=== PATIENT | female | born 1975 | race Caucasian/White ===

== ENCOUNTER → 2016-09-12 | Outpatient (CLI) | payer BC, OTHER ==
[2016-09-12 09:40] LABS: Basophils # (A) 0.1 k/uL (0-0.2); Basophils % (A) 1 %; CH 28.8; CHCM 34.1; Eosinophils # (A) 0.1 k/uL (0-0.7); Eosinophils % (A) 2 %; HCT 44.1 % (34.0-46.0); HDW 2.72; HGB 14.6 gm/dL (11.4-16.0); Luc # (Auto) 0.14; Luc % (Auto) 2; Lymphocytes # (A) 2.6 k/uL (1.0-4.8); Lymphocytes % (A) 29 %; MCH 28.1 pg (25.0-35.0); MCHC 33.1 g/dL (31.0-37.0); MCV 84.9 fL (80.0-100.0); Mean Platelet Volume 7.1; Monocytes # (A) 0.4 k/uL (0-1.0); Monocytes % (A) 5 %; Neutrophils # (A) 5.4 k/uL (1.3-7.7); Neutrophils % (A) 62 %; RDW 13.2 % (11.5-15.5); WBC 8.8 k/uL (3.8-10.6); WBC (Perox) 8.47
[2016-09-12 10:10] LABS: Anion Gap 9 mmol/L; Blood Urea Nitrogen 10 mg/dL (7-17); Calcium 9.8 mg/dL (8.4-10.2); Carbon Dioxide 25 mmol/L (22-30); Chloride 104 mmol/L (98-107); Glucose 108 mg/dL (74-99); Non-African American GFR(MDRD) >60 (>60 ml/min/1.73 sqM); Potassium 4.4 mmol/L (3.5-5.1); Sodium 138 mmol/L (137-145)
== END ==
LOC: LABPAT 08:43
PROVIDERS: ATTEND Obstetrics & Gynecology
DX: Z01.818 Encounter for other preprocedural examination (principal)
CPT/HCPCS: 80048; 85025; 86850; 86900; 86901

== ENCOUNTER 2016-09-20 06:05 | Observation (INO) | payer BC, OTHER ==
[2016-09-18 09:21] VITALS: BMI 34.6
[~2016-09-20 06:05] MED LIST: DEXAMETHASONE SOD PHOSPHATE 10 MG/ML 1 ML VIAL IV ONE; MIDAZOLAM 2 MG/2 ML VIAL IV PRN; SCOPOLAMINE 1.5MG/72HR PATCH TRANSDERM ONE; ceFAZolin 2 GM in SODIUM CHLORIDE 0.9% 100 ML IVPB ONE
[2016-09-20 06:22] VITALS: RESP 16
[2016-09-20] MEDS: LIDOCAINE 1% 20 ML VIAL (10MG/ML) FOR IV START INTRADERMA PRN ×2 (06:42→06:48)
[2016-09-20] MEDS: LACTATED RINGERS 1,000 ML IV SCH (06:47)
[2016-09-20] MEDS: ONDANSETRON 4 MG/2 ML VIAL IVP ONE ×2 (06:48→10:02)
--- NOTE | 2016-09-20 07:06 | P.HPOB ---
History of Present Illness H&P Date: 09/20/16 Chief Complaint: Pelvic organ prolapse 41 year old presents for TLH using da kiki with posterior repair and possible anterior repair. Review of Systems All systems: negative Constitutional: Denies chills, Denies fever Eyes: denies blurred vision, denies pain Ears, nose, mouth and throat: Denies headache, Denies sore throat Cardiovascular: Denies chest pain, Denies shortness of breath Respiratory: Denies cough Gastrointestinal: Denies abdominal pain, Denies diarrhea, Denies nausea, Denies vomiting Genitourinary: Denies dysuria, Denies hematuria Musculoskeletal: Denies myalgias Integumentary: Denies pruritus, Denies rash Neurological: Denies numbness, Denies weakness Psychiatric: Denies anxiety, Denies depression Endocrine: Denies fatigue, Denies weight change Past Medical History Past Medical History: Cancer, Skin Disorder Additional Past Medical History / Comment(s): migraines, hiatal hernia, hx skin cancer, vaginal prolapse, essure implants History of Any Multi-Drug Resistant Organisms: None Reported Past Surgical History: Cholecystectomy, Tubal Ligation Additional Past Surgical History / Comment(s): skin cancer removed from nose, D& C Past Anesthesia/Blood Transfusion Reactions: Family History of Problems w/ Anesthesia, Motion Sickness Additional Past Anesthesia/Blood Transfusion Reaction / Comment(s): paternal grandfather "allergic to anesthesia" not sure what symptoms Past Psychological History: No Psychological Hx Reported Smoking Status: Never smoker Past Alcohol Use History: None Reported Past Drug Use History: None Reported - Past Family History Father Family Medical History: Cancer Mother Family Medical History: Cancer Sister(s) Family Medical History: Cancer, Deep Vein Thrombosis (DVT) Medications and Allergies Home Medications Medication Instructions Recorded Confirmed Type No Known Home Medications [No 09/18/16 09/20/16 History Known Home Medications] Allergies Allergy/AdvReac Type Severity Reaction Status Date / Time citric acid Allergy Rash/Hives Verified 09/20/16 06:19 Exam Osteopathic Statement: *. No significant issues noted on an osteopathic structural exam other than those noted in the History and Physical/Consult. - Vital Signs Vital signs: Vital Signs Temp Pulse Resp BP Pulse Ox 09/20/16 06:21 97.5 F L 70 16 110/72 98 Heart: Regular rate and rhythm Lungs: Clear to auscultation bilaterally Abdomen: Soft, nontender Extremities: Negative Homans sign Assessment and Plan (1) Uterine prolapse Status: Acute (2) Rectocele Status: Acute Plan: Total laparoscopic hysterectomy using the da Kiki with posterior repair and possible anterior repair.
[2016-09-20] MEDS ORDERED: BUPIVACAINE (PF) 0.25% 30 ML VIAL SQ ONE ×3 (07:14→08:41)
[2016-09-20] MEDS ORDERED: SUCCINYLCHOLINE CHLORIDE 100 MG/5 ML SYR IV ONE (07:15)
[2016-09-20] MEDS ORDERED: MIDAZOLAM 2 MG/2 ML VIAL ONE (07:15)
[2016-09-20] MEDS ORDERED: PROPOFOL 10 MG/ML 20 ML VIAL IV ONE (07:15)
[2016-09-20] MEDS ORDERED: GLYCOPYRROLATE 0.2 MG/ML 2 ML VIAL ONE (07:15)
[2016-09-20] MEDS ORDERED: ROCURONIUM BROMIDE 10 MG/ML 10 ML VIAL IV ONE (07:15)
[2016-09-20] MEDS ORDERED: fentaNYL (PF) 50 MCG/ML 2 ML AMP ONE (07:15)
[2016-09-20] MEDS ORDERED: NEOSTIGMINE 1 MG/ML 10 ML VIAL ONE (07:15)
[2016-09-20] MEDS ORDERED: LIDOCAINE 1% INJ 10MG/ML (20 ML MDV) ONE (07:15)
[2016-09-20] MEDS ORDERED: VASOPRESSIN 20 UNIT/ML 1 ML VIAL IM ONE ×2 (08:40→08:41)
[2016-09-20] MEDS ORDERED: BACITRACIN 500 UNIT/GM OINT 28.4 GM TUBE TOPICAL ONE (08:49)
--- NOTE | 2016-09-20 09:28 | P.OP ---
Date of Procedure: 09/20/16 Preoperative Diagnosis: 1. Uterine prolapse 2. Rectocele Postoperative Diagnosis: 1. Uterine prolapse 2. Rectocele Procedure(s) Performed: Total laparoscopic hysterectomy with bilateral salpingo-oophorectomy using da Leyla, posterior repair Anesthesia: RHETT Surgeon: Sary Salazar Human Performance Consultant #1: Homar Kang Estimated Blood Loss (ml): 50 IV fluids (ml): 1,500 Urine output (ml): 350 Pathology: other (Uterus, cervix, bilateral tubes and ovaries, vaginal mucosa) Condition: stable Disposition: PACU Operative Findings: Grade 2 uterine prolapse, grade 2 rectocele, normal uterus tubes and ovaries Description of Procedure: Patient taken the operating room where general anesthesia was obtained without difficulty. She is prepped and draped in normal sterile fashion dorsal lithotomy position, legs placed in the Benito stirrups. Weighted speculum placed in the vagina and the anterior lip the cervix was grasped with single- tooth tenaculum. The uterus sounded to 6 cm and the cervix diameter was 2.5 cm. The appropriate manipulator tip and ring were placed on the Lenore manipulator. The Lenore manipulator was then placed in the uterus. Kapadia catheter was also placed. Attention was then turned to the abdomen and gloves were changed. A 5 mm supraumbilical incision was made the scalpel and a 5 mm optical trocar was placed under direct visualization. 10 cm to the right of this and 2 cm down a 5 mm incision was made and 8 mm da Leyla port was placed under direct visualization. Same measurements on the opposite side of the patient's abdomen, the 5 mm incision was made and 8 mm da Leyla port was placed under direct visualization. In the left upper quadrant a 10 mm incision was made and a 10 mm optical trocar was placed under direct visualization. The 5 mm optical trocar was then replaced with the 8 mm da Leyla camera port. The robot was docked on patient's right side. The camera was introduced and then the monopolar curved scissor and [place] bipolar placed under direct visualization. I broke scrub and went to the physician console. The left infundibulopelvic ligament was cauterized with the [place] bipolar and cut with monopolar curved scissors. The left round ligament was cauterized with the [place] bipolar and cut with monopolar curved scissors. The posterior leaf of the broad ligament was taken down using the monopolar curved scissors. Anterior leaf of the broad ligament was then taken down using the monopolar curved scissors. The uterine artery was cauterized with the [place] bipolar and cut with monopolar curved scissors. The bladder flap was then started using the monopolar curved scissors. Attention was then turned to the right side of the patient's anatomy and the right infundibular pelvic ligament was cauterized with the [place] bipolar and cut with monopolar curved scissors. The right round ligament was cauterized with the [place] bipolar and cut with monopolar curved scissors. Posterior leaf of the broad ligament was taken down using the monopolar curved scissors and the anterior leaf was taken down using the monopolar curved scissors. The uterine artery was cauterized the [place] bipolar cut with monopolar curved scissors. The bladder flap was then finished on this side. Anterior colpotomy was made using the monopolar curved scissors. The rest of the uterus was from the vaginal cuff by following the ring around with the monopolar curved scissors through the uterosacral ligaments back to the anterior portion. Once the uterus and cervix were amputated they were pulled through the vaginal cuff. Hemostasis was assured. The instruments were changed for the Cardier forcep and the augustine suture cut. The vaginal cuff was then closed using O stratafix barbed suture in a running fashion. Hemostasis was again assured and the pelvis was irrigated. All instruments were removed from the abdomen and the robot was undocked. I scrubbed back in to perform a cystoscopy. There were jets from both ureteral orifices. The abdominal incisions were closed with 4-0 Vicryl in a subcuticular fashion. The vaginal mucosa was grasped with Allis clamps. Dilute vasopressin was then injected in the posterior vaginal mucosa. Incision was made at the scalpel. The vaginal mucosa was from the underlying fascia using the Metzenbaums and incision was made into the vaginal mucosa. The underlying fascia was dissected off using the Metzenbaums and blunt digital dissection. Elizabeth plication stitches were then placed with 0 Vicryl. The excess vaginal mucosa was trimmed and then closed using 0 Vicryl in a running locked fashion. Excellent hemostasis was achieved. Patient tolerated the procedure well, sponge and instrument counts correct 2 and she was taken to recovery room in stable condition condition
[2016-09-20] MEDS: HYDROmorphone 1 MG/ML 1 ML SYRINGE IVP PRN ×2 (09:53→10:00)
[2016-09-20] MEDS ORDERED: Acetaminophen-Codeine 300-30mg TAB PO PRN ×2 (10:04)
[2016-09-20] MEDS ORDERED: METOCLOPRAMIDE 5 MG/ML 2 ML VIAL IVP PRN (10:04)
[2016-09-20] MEDS ORDERED: SIMETHICONE 80 MG CHEWABLE PO PRN (10:04)
[2016-09-20] MEDS ORDERED: IBUPROFEN 600 MG TAB PO PRN (10:04)
[2016-09-20] MEDS ORDERED: ONDANSETRON 4 MG/2 ML VIAL IVP PRN (10:04)
[2016-09-20] MEDS ORDERED: diphenhydrAMINE 50 MG/ML 1 ML VIAL IVP PRN (10:04)
[2016-09-20] MEDS: KETOROLAC 30 MG/ML 1 ML VIAL IVP PRN ×2 (14:15→20:51)
[2016-09-20] MEDS: SENNOSIDES-DOCUSATE SODIUM 1 EACH TAB PO SCH (23:20)
[2016-09-21 06:05] LABS: Basophils % (A) 0 %; CH 28.7; CHCM 33.9; Eosinophils # (A) 0.1 k/uL (0-0.7); Eosinophils % (A) 0 %; HCT 37.4 % (34.0-46.0); HDW 2.74; HGB 12.6 gm/dL (11.4-16.0); Luc # (Auto) 0.21; Luc % (Auto) 1; Lymphocytes # (A) 2.9 k/uL (1.0-4.8); Lymphocytes % (A) 19 %; MCH 28.6 pg (25.0-35.0); MCHC 33.7 g/dL (31.0-37.0); Mean Platelet Volume 7.7; Monocytes % (A) 6 %; Neutrophils # (A) 11.3 k/uL (1.3-7.7); Neutrophils % (A) 73 %; RDW 13.2 % (11.5-15.5); WBC 15.4 k/uL (3.8-10.6); WBC (Perox) 16.18
--- NOTE | 2016-09-21 07:36 | P.DS ---
Providers Date of admission: 09/20/16 20:54 Expected date of discharge: 09/21/16 Attending physician: Sary Salazar Primary care physician: Pravin Amaral - Discharge Diagnosis(es) (1) Uterine prolapse Current Visit: Yes Status: Resolved (2) Rectocele Current Visit: Yes Status: Resolved (3) History of robot-assisted laparoscopic hysterectomy Current Visit: Yes Status: Acute Hospital Course: Patient presented for TLHBSO with posterior repair and possible anterior repair. She underwent a TLHBSO and posterior repair using da Leyla. She is postoperative day 1 today and she is tolerating regular diet, passing flatus, voiding and ambulating without difficulty. Her pain is well-controlled and she would like to go home. Incisions are clean, dry, intact. She'll be discharged home postoperative day #1 to follow-up with me in 3 weeks. Plan - Discharge Summary New Discharge Prescriptions: Acetaminophen-Codeine 300-30mg [Tylenol #3] 2 tab PO Q6H PRN #30 tablet PRN Reason: Pain Ibuprofen [Motrin] 600 mg PO Q6HR PRN #30 tab PRN Reason: Mild Pain Or Fever >= 100.5 Discharge Medication List Acetaminophen-Codeine 300-30mg [Tylenol #3] 2 tab PO Q6H PRN #30 tablet [Rx] Ibuprofen [Motrin] 600 mg PO Q6HR PRN #30 tab 09/21/16 [Rx] Follow up Appointment(s)/Referral(s): Sary Salazar DO [Doctor of Osteopathic Medicine] - 3 Weeks Discharge Disposition: HOME SELF-CARE
[2016-09-21] MEDS: SENNOSIDES-DOCUSATE SODIUM 1 EACH TAB PO SCH (08:25)
[2016-09-21 08:37] VITALS: BP 117/73; PULSE 71; TEMP 98.3
== END 2016-09-21 09:00 | disposition home or self-care (01) ==
LOC: OR 06:05 → 4FBP 09:05 → OR 20:54 → 4FBP 20:54
PROVIDERS: ADMIT Obstetrics & Gynecology; ATTEND Obstetrics & Gynecology
DX: N81.4 Uterovaginal prolapse, unspecified (principal); N81.2 Incomplete uterovaginal prolapse
CPT/HCPCS: 58571; 57250; 96376; 96374; 81025; 85025; 88307; G0378 ×2; J2250; J1100; J2710; J2405; J2001; J3010; J1885; J1170; J0330; J2704; 86850; 86900; 86901

== ENCOUNTER → 2018-09-22 | Outpatient (CLI) | payer BC, OTHER ==
[2018-09-22 09:37] LABS: Basophils # (A) 0.1 k/uL (0-0.2); Basophils % (A) 1 %; Eosinophils # (A) 0.2 k/uL (0-0.7); Eosinophils % (A) 2 %; HCT 43.8 % (34.0-46.0); HGB 14.3 gm/dL (11.4-16.0); Lymphocytes # (A) 2.3 k/uL (1.0-4.8); Lymphocytes % (A) 32 %; MCH 27.1 pg (25.0-35.0); MCHC 32.7 g/dL (31.0-37.0); MCV 82.9 fL (80.0-100.0); Mean Platelet Volume 7.9; Monocytes # (A) 0.5 k/uL (0-1.0); Monocytes % (A) 7 %; Neutrophils % (A) 56 %; Platelet Count 225 k/uL (150-450); RBC 5.29 m/uL (3.80-5.40); RDW 14.6 % (11.5-15.5); WBC 7.1 k/uL (3.8-10.6)
[2018-09-22 17:30] LABS: Anion Gap 10.1 mmol/L (4.00-12.00); Calcium 9.2 mg/dL (8.7-10.3); Carbon Dioxide 22.9 mmol/L (21.6-31.8); Potassium 4.3 mmol/L (3.5-5.5)
== END | disposition home or self-care (01) ==
LOC: LABPRL 08:39 → LABPAT 08:39
PROVIDERS: ATTEND Obstetrics & Gynecology
DX: Z01.812 Encounter for preprocedural laboratory examination (principal)
CPT/HCPCS: 36415; 80048; 85025

== ENCOUNTER 2018-09-29 05:57 | Day surgery (SDC) | payer BC, OTHER ==
[~2018-09-29 05:57] MED LIST changes: -DEXAMETHASONE SOD PHOSPHATE 10 MG/ML 1 ML VIAL IV ONE; +HYDROmorphone 0.5 MG/0.5 ML SYRINGE IVP PRN; +LIDOCAINE 1% 20 ML VIAL (10MG/ML) FOR IV START INTRADERMA PRN; -MIDAZOLAM 2 MG/2 ML VIAL IV PRN; -ceFAZolin 2 GM in SODIUM CHLORIDE 0.9% 100 ML IVPB ONE; +ceFAZolin IN SWFI 2 GM/20 ML SYRINGE IVP ONE
[2018-09-29] MEDS ORDERED: LIDOCAINE 1% 20 ML VIAL (10MG/ML) FOR IV START INTRADERMA ONE (06:36)
[2018-09-29] MEDS: LACTATED RINGERS 1,000 ML IV SCH ×2 (06:36→19:10)
[2018-09-29] MEDS: DEXAMETHASONE SOD PHOSPHATE 10 MG/ML 1 ML VIAL IV ONE ×2 (06:37→10:21)
[2018-09-29] MEDS: ONDANSETRON 4 MG/2 ML VIAL IVP ONE ×2 (06:37→10:21)
[2018-09-29] MEDS ORDERED: MIDAZOLAM (PF) 2 MG/2 ML VIAL IVP ONE (06:54)
[2018-09-29] MEDS ORDERED: fentaNYL (PF) 50 MCG/ML 2 ML AMP IVP ONE (06:55)
--- NOTE | 2018-09-29 07:43 | P.HPOB ---
History of Present Illness H&P Date: 09/29/18 Chief Complaint: cystocele 43 year old presents for anterior repair. Review of Systems All systems: negative Constitutional: Denies chills, Denies fever Eyes: denies blurred vision, denies pain Ears, nose, mouth and throat: Denies headache, Denies sore throat Cardiovascular: Denies chest pain, Denies shortness of breath Respiratory: Denies cough Gastrointestinal: Denies abdominal pain, Denies diarrhea, Denies nausea, Denies vomiting Genitourinary: Denies dysuria, Denies hematuria Musculoskeletal: Denies myalgias Integumentary: Denies pruritus, Denies rash Neurological: Denies numbness, Denies weakness Psychiatric: Denies anxiety, Denies depression Endocrine: Denies fatigue, Denies weight change Past Medical History Past Medical History: Cancer, GERD/Reflux, Osteoarthritis (OA) Additional Past Medical History / Comment(s): migraines, hiatal hernia, hx skin cancer, vaginal prolapse History of Any Multi-Drug Resistant Organisms: None Reported Past Surgical History: Cholecystectomy, Hysterectomy, Tubal Ligation Additional Past Surgical History / Comment(s): SKIN CANCER, D&C Past Anesthesia/Blood Transfusion Reactions: No Reported Reaction, Family His tory of Problems w/ Anesthesia, Motion Sickness Additional Past Anesthesia/Blood Transfusion Reaction / Comment(s): Maternal grandfather had problems with anesthesia- not sure what symptoms Past Psychological History: No Psychological Hx Reported Smoking Status: Never smoker Past Alcohol Use History: Occasional Past Drug Use History: None Reported - Past Family History Father Family Medical History: Cancer Additional Family Medical History / Comment(s): skin cancer Mother Family Medical History: Cancer Additional Family Medical History / Comment(s): skin cancer Sister(s) Family Medical History: Deep Vein Thrombosis (DVT) Medications and Allergies Home Medications Medication Instructions Recorded Confirmed Type No Known Home Medications 09/25/18 09/29/18 History Allergies Allergy/AdvReac Type Severity Reaction Status Date / Time citric acid Allergy Rash/Hives Verified 09/29/18 06:11 Exam Osteopathic Statement: *. No significant issues noted on an osteopathic stru ctural exam other than those noted in the History and Physical/Consult. Vital Signs Temp Pulse Resp BP Pulse Ox 09/29/18 07:03 53 L 16 122/67 97 05/13/19 06:18 98.2 F 50 L 18 114/60 94 L HEart: RRR Lungs: CTAB Abdomen: soft, nontender Extremeties: neg john's Assessment and Plan (1) Cystocele Current Visit: Yes Status: Acute Code(s): [id number] - SNOMED Code(s): 301099186 Plan: 1, aterior repair
[2018-09-29] MEDS ORDERED: LIDOCAINE 1% INJ 10MG/ML (20 ML MDV) ONE (07:44)
[2018-09-29] MEDS ORDERED: diphenhydrAMINE 50 MG/ML 1 ML VIAL ONE (07:44)
[2018-09-29] MEDS ORDERED: fentaNYL (PF) 50 MCG/ML 2 ML AMP ONE (07:44)
[2018-09-29] MEDS ORDERED: MIDAZOLAM 2 MG/2 ML VIAL ONE (07:44)
[2018-09-29] MEDS ORDERED: SUCCINYLCHOLINE CHLORIDE 100 MG/5 ML SYR IV ONE (07:44)
[2018-09-29] MEDS ORDERED: PROPOFOL 10 MG/ML 20 ML VIAL IV ONE (07:44)
[2018-09-29] MEDS ORDERED: VASOPRESSIN 20 UNIT/ML 1 ML VIAL SQ ONE (08:09)
--- NOTE | 2018-09-29 08:45 | P.OP ---
Date of Procedure: 09/29/18 Preoperative Diagnosis: cystocele Postoperative Diagnosis: cystocele Procedure(s) Performed: anterior repair Anesthesia: RHETT Surgeon: Sary Salazar Yarn Washer #1: Homar Kang Estimated Blood Loss (ml): 5 IV fluids (ml): 750 Urine output (ml): 100 Pathology: other (vaginal mucosa) Condition: stable Disposition: PACU Operative Findings: grade 3 cystocele Description of Procedure: Patient was taken to the operating room where general anesthesia was obtained without difficulty. She was prepped and draped in normal sterile fashion dorsal lithotomy position, legs placed in candycane stirrups. Bladder was drained of all urine. Weighted speculum place in vagina the in the anterior vaginal mucosa was grasped with Allis clamps. The anterior vaginal mucosa was infiltrated with diluted vasopressin. A linear incision was made with a scalpel and then Metzenbaum's to underscore the vaginal mucosa off the fascia. The vaginal closely was then peeled off the underlying fascia. Elizabeth plication stitches were then placed. The excess vaginal mucosa was trimmed off and then closed with 0 Vicryl in a running locked fashion. Hemostasis assured. Kapadia catheter placed and clear yellow urine was seen. Patient tolerated procedure well, sponge and instrument counts correct 2. She was taken to recovery in stable condition.
[2018-09-29] MEDS ORDERED: ZOLPIDEM 5 MG TAB PO PRN (09:01)
[2018-09-29] MEDS ORDERED: KETOROLAC 30 MG/ML 1 ML VIAL IVP PRN (09:01)
[2018-09-29] MEDS ORDERED: SIMETHICONE 80 MG CHEWABLE PO PRN (09:01)
[2018-09-29] MEDS ORDERED: ONDANSETRON 4 MG/2 ML VIAL IVP PRN (09:01)
[2018-09-29] MEDS ORDERED: IBUPROFEN 600 MG TAB PO PRN (09:01)
[2018-09-29] MEDS ORDERED: Acetaminophen-Codeine 300-30mg TAB PO PRN ×2 (09:01)
[2018-09-29] MEDS ORDERED: METOCLOPRAMIDE 5 MG/ML 2 ML VIAL IVP PRN (09:01)
[2018-09-29] MEDS ORDERED: NALBUPHINE 10 MG/ML (1 ML AMP) IV PRN (10:00)
[2018-09-29] MEDS ORDERED: MORPHINE SULFATE 2 MG/ML SYRINGE IVP PRN (10:00)
[2018-09-29] MEDS ORDERED: diphenhydrAMINE 50 MG/ML 1 ML VIAL IVP PRN (10:00)
[2018-09-29] MEDS ORDERED: NALOXONE 0.4 MG/ML 1 ML VIAL IV PRN (10:00)
[2018-09-29 13:42] VITALS: BMI 37.3
[2018-09-30 08:30] VITALS: BP 106/69; PULSE 55; TEMP 98.3
[2018-09-30 08:37] LABS: Basophils % (A) 0 %; Eosinophils # (A) 0.1 k/uL (0-0.7); Eosinophils % (A) 0 %; HGB 12.3 gm/dL (11.4-16.0); Lymphocytes # (A) 3.1 k/uL (1.0-4.8); Lymphocytes % (A) 22 %; MCH 27.7 pg (25.0-35.0); MCHC 33.4 g/dL (31.0-37.0); MCV 83.1 fL (80.0-100.0); Mean Platelet Volume 7.4; Monocytes # (A) 0.8 k/uL (0-1.0); Monocytes % (A) 6 %; Neutrophils # (A) 9.5 k/uL (1.3-7.7); Neutrophils % (A) 70 %; Platelet Count 223 k/uL (150-450); RBC 4.46 m/uL (3.80-5.40); RDW 13.8 % (11.5-15.5); WBC 13.6 k/uL (3.8-10.6)
[2018-09-30 09:35] VITALS: RESP 18
--- NOTE | 2018-09-30 11:00 | P.PN ---
Progress Note - Text 09/30 632am 43-year-old female status post anterior repair. Patient had spinal injection of Duramorph for postop pain control, patient seen this morning doing very well. Patient has a VAS of 0 with no complains of nausea vomiting or pruritus.
== END 2018-09-30 11:27 | disposition home or self-care (01) ==
LOC: OR 05:57 → 6PED 08:50 → OR 09-30 11:27
PROVIDERS: ATTEND Obstetrics & Gynecology
DX: N81.4 Uterovaginal prolapse, unspecified (principal); M19.90 Unspecified osteoarthritis, unspecified site; K21.9 Gastro-esophageal reflux disease without esophagitis; K44.9 Diaphragmatic hernia without obstruction or gangrene; Z85.828 Personal history of other malignant neoplasm of skin; Z90.710 Acquired absence of both cervix and uterus; Z98.51 Tubal ligation status; Z88.8 Allergy status to other drugs, medicaments and biological substances
CPT/HCPCS: 57240; 85025; 88302; J2250 ×2; J1200; J1100; J2405; J2001; J3010; J1885; J0330; J2704; J0690; 86850; 86900; 86901